=== PATIENT | female | born 1985 | race Caucasian/White ===

== ENCOUNTER 2021-01-06 01:04 | Emergency (ER) | payer BC, OTHER ==
[~2021-01-06] VITALS: Ht 154.9 cm; Wt 59.5 kg
[2021-01-06 01:26] VITALS: BP 120/87
[2021-01-06] MEDS ORDERED: LIDOcaine 1% w/epiNEPHrine 1:200,000 30ml vial IJ ONE (02:55)
[2021-01-06] MEDS ORDERED: LIDOcaine 1% W/epiNEPHrine 1:200,000 10ml vial IJ ONE (02:55)
== END 2021-01-06 03:47 | disposition home or self-care (01) ==
LOC: ER 01:05
DX: S61.011A Laceration without foreign body of right thumb without damage to nail, initial encounter (principal); Z88.8 Allergy status to other drugs, medicaments and biological substances; X58.XXXA Exposure to other specified factors, initial encounter; Y93.89 Activity, other specified; Y92.89 Other specified places as the place of occurrence of the external cause; Y99.8 Other external cause status
CPT/HCPCS: 12001; 99282; 99283